=== PATIENT | male | born 1955 | race Caucasian/White ===

== ENCOUNTER 2018-05-26 14:05 | Observation (INO) | payer BC ==
[2018-05-26 14:37] LABS: #Lymphocytes 2.3 thou/uL (1.20-3.40); #Monocytes 0.6 thou/uL (0.11-0.59); #Neutrophils 5.1 thou/uL (1.40-6.50); %Basophils 0.4 % (0.0-1.0); %Eosinophils 0.5 % (0.0-10.0); %Lymphocytes 28.9 % (21.0-51.0); %Monocytes 7.2 % (0.0-10.0); %Neutrophils 63.1 % (42.0-75.0); Hemoglobin 15.1 g/dL (14.0-18.0); Mean Corpuscular HGB CONC 32.9 g/dL (32.0-36.0); Mean Corpuscular Volume 94.1 fL (78.0-98.0); Mean Platelet Volume 9.7 fL (7.4-10.4); Platelet Count 230 thou/uL (130-400); RBC Distribution Width 12.2 % (11.5-14.5); Red Blood Cell (RBC) Count 4.88 mill/uL (4.70-6.10); White Blood Cell (WBC) Count 8.1 thou/uL (4.8-10.8)
[2018-05-26 14:46] LABS: ALT (SGPT) 26 U/L (8-55); AST (SGOT) 30 U/L (5-34); Albumin 4.6 g/dL (3.4-4.8); Alkaline Phosphatase 81 U/L (40-150); Anion Gap 14 mmol/L (10-20); BUN (Urea Nitrogen) 41 mg/dL (8.4-25.7); Bilirubin, Total 0.7 mg/dL (0.2-1.2); CK (CPK) 511 U/L (30-200); Calc. Creatinine Clearance 0 mL/min (70-130); Calcium 9.8 mg/dL (7.8-10.44); Carbon Dioxide 25 mmol/L (23-31); Chloride 97 mmol/L (98-107); Estimated GFR-MDRD 51; Globulin 3.1 g/dL (2.4-3.5); Glucose 103 mg/dL (80-115); Potassium 4.1 mmol/L (3.5-5.1); Protein, Total 7.7 g/dL (5.8-8.1); Sodium 132 mmol/L (136-145)
--- NOTE | 2018-05-26 14:50 | RAD ---
SINGLE VIEW OF THE CHEST: Comparison: 08-21-04 History: Chest pain. FINDINGS: Single view of the chest shows a normal sized cardiomediastinal silhouette. There is no evidence of c onsolidation, mass, or pleural effusion. The bones are unremarkable. IMPRESSION: No evidence of acute cardiopulmonary disease. POS: [facility]
[2018-05-26 14:51] LABS: Troponin I Less than 0.010 ng/mL (< 0.028)
[2018-05-26 14:54] LABS: CKMB 7.3 ng/mL (0-6.6)
[2018-05-26] MEDS ORDERED: Aspirin 325 MG TAB ONE (15:11)
[2018-05-26 18:04] LABS: Troponin I Less than 0.010 ng/mL (< 0.028)
[2018-05-26] MEDS: Sodium Chloride 0.9% 1,000 ML IV SCH (19:14)
[2018-05-26 19:39] VITALS: BMI 31.8
[2018-05-26] MEDS ORDERED: Nitroglycerin 0.4 MG TAB (25 Tab Bottle) PO PRN (19:55)
[2018-05-26] MEDS ORDERED: diphenhydrAMINE 25 MG CAP PO PRN (19:57)
[2018-05-26 21:01] LABS: Anion Gap 11 mmol/L (10-20); BUN (Urea Nitrogen) 28 mg/dL (8.4-25.7); Calc. Creatinine Clearance 118 mL/min (70-130); Calcium 9.2 mg/dL (7.8-10.44); Carbon Dioxide 28 mmol/L (23-31); Chloride 102 mmol/L (98-107); Estimated GFR-MDRD 74; Glucose 106 mg/dL (80-115); Potassium 3.9 mmol/L (3.5-5.1); Sodium 137 mmol/L (136-145)
[2018-05-26 21:06] LABS: Troponin I Less than 0.010 ng/mL (< 0.028)
[2018-05-27] MEDS: Sodium Chloride 0.9% 1,000 ML IV SCH (03:36)
[2018-05-27 05:14] LABS: Anion Gap 12 mmol/L (10-20); BUN (Urea Nitrogen) 20 mg/dL (8.4-25.7); Calc. Creatinine Clearance 156 mL/min (70-130); Calcium 8.8 mg/dL (7.8-10.44); Carbon Dioxide 23 mmol/L (23-31); Cardiac Risk 3.9 (Less than 4.5); Chloride 104 mmol/L (98-107); Cholesterol 121 mg/dl (< 200 Desired); Estimated GFR-MDRD Greater than 90; Glucose 93 mg/dL (80-115); HDL Cholesterol 31 mg/dL (>60 Neg Risk); LDL Cholesterol, Calculated 66 mg/dL; Potassium 4.2 mmol/L (3.5-5.1); Sodium 135 mmol/L (136-145); Triglycerides 120 mg/dL (Less than 150)
--- NOTE | 2018-05-27 05:49 | PDOC.EVN ---
Event Note - Event Note Event Note: h&p dictated [id number]
--- NOTE | 2018-05-27 07:55 | HP ---
PRIMARY CARE PHYSICIAN: [facility]. CHIEF COMPLAINT: Left-sided arm numbness and tingling, specifically over his shoulder, radiating jered n to his elbow without further extension, that is currently resolved. HISTORY OF PRESENT ILLNESS: This is a 62-year-old male, who does not typically follow consistently w ith a PCP, but does have a known history of hypertension who presents with general complaints of not feeling well. Specifically, he has been feeling diaphoretic and extremely sweaty during exertion. T his sensation has also earlier today, but accompanied by left-sided shoulder numbness and tingling th at radiates down to his elbow. The patient denies any sharp chest pains or chest pressure over his l eft thigh. He states that his symptoms resolved after he stopped physical exertion. No accompanying nausea, vomiting, or shortness of breath, no prior similar events. REVIEW OF SYSTEMS: Constitutional: No recent illnesses. No recent significant weight gain or loss over the past 3 months. Denies any fevers or chills in the last week. HEENT: No new headaches, lig htheadedness, vision changes, or dizziness. Cardiovascular: As described above. Respiratory: No s hortness of breath. No recent upper respiratory infection, no cough, no congestion. Gastrointestina l: No nausea, no vomiting, no abdominal pain, no issues with diarrhea or constipation. The patient reports a retained appetite. Genitourinary: Denies any dysuria, change in urinary frequency, qualit y, quantity, or color. Musculoskeletal: Denies any myalgias or arthralgias, other than that describ ed above in the HPI. Remainder of the review of systems otherwise negative. PAST MEDICAL HISTORY: Significant for hypertension. PAST SURGICAL HISTORY: The patient reports multiple orthopedic surgeries in the past including a lef t joint replacement. FAMILY HISTORY: The patient denies any known family history of similar episodes or cardiac issues. SOCIAL HISTORY: The patient denies any tobacco use. Endorses only very occasional alcohol use, 1-2 drinks every 2-3 weeks with friends. He is single, does not have any children. HOME MEDICATIONS: None. Patient also denies taking any herbal supplement, vitamins, or zsxi-hmm-epy nter medications. PHYSICAL EXAMINATION: GENERAL: The patient is awake, alert, conversant, in no acute distress, lying in the hospital bed. HEENT: Normocephalic, atraumatic. Equal ocular motions are intact, moist mucous membranes. CARDIOVASCULAR: S1, S2. No murmurs, rubs, or gallops, soft heart tones. Pulses 2+ bilateral upper extremities, no pitting pedal edema, no carotid bruits. RESPIRATORY: Reasonable air movement. No wheezes, rales, or rhonchi. No conversational dyspnea. C lear to auscultation bilaterally. ABDOMEN: Positive bowel sounds, soft, nontender to palpation. MUSCULOSKELETAL: Moving all 4 extremities independently. LABORATORY DATA AND IMAGING: On 05/26/2018, chest x-ray: Impression: "No evidence of acute cardiop ulmonary disease." WBC 8.1, hemoglobin 15.1, hematocrit 45.9, platelets 230,000. Sodium 132, potass ium 4.1, chloride 97, bicarbonate 25, anion gap of 14, BUN of 41, creatinine 1.4, glucose 103, calciu m 9.8, total bilirubin 0.7, AST 30, ALT 26, alkaline phosphatase 81. Creatinine kinase 511, CK-MB 7. 3, troponin initial less than 0.1, total protein 7.7, albumin 4.6. ASSESSMENT AND PLAN: A 62-year-old male presenting with a chief complaint of easy fatigability and f eeling poorly with diaphoretic episodes and left-sided arm numbness and tingling. 1. The patient's presentation certainly could be consistent with atypical chest pain related to an a cute coronary syndrome-type phenomenon. Unfortunately, the patient does not have a longstanding hist ory of close followup with his primary care physician, so beyond hypertension, it is not clear if he has any other modifiable risk factors or risk factors in general. Check a fasting lipid panel and cl osely monitor the patient's a.m. glucose levels. Maintain the patient on telemetry, repeat EKG in morning, echocardiogram, 2D. To consider stress test if all of the above are otherwise negative. 2. Elevated creatinine, concern for the possibility of prerenal renal injury. The patient does not give a known history of renal disease, but he does have, it appears, longstanding hypertension. As t hese episodes that the patient describes occur mostly with exertion, particularly outside, question t he possibility of dehydration playing a role. Patient currently has normal saline at 125 mL an hour. We will closely monitor intake and output along with vital signs. Repeat BMP and see if renal func tion stabilizes. No further evaluation at this point in time 3. Hypertension appears to be controlled at this point in time. 4. Diet: Cardiac, low sodium. 5. Activity: As tolerated. 6. Deep venous thrombosis prophylaxis with enoxaparin.
[2018-05-27] MEDS ORDERED: Aspirin 325 MG TAB PO SCH (09:00)
[2018-05-27 12:01] VITALS: BP 136/67; TEMP 98
[2018-05-27 12:46] LABS: Anion Gap 13 mmol/L (10-20); BUN (Urea Nitrogen) 15 mg/dL (8.4-25.7); Calc. Creatinine Clearance 155 mL/min (70-130); Calcium 8.9 mg/dL (7.8-10.44); Carbon Dioxide 22 mmol/L (23-31); Chloride 106 mmol/L (98-107); Estimated GFR-MDRD Greater than 90; Glucose 83 mg/dL (80-115); Potassium 4.4 mmol/L (3.5-5.1); Sodium 137 mmol/L (136-145)
--- NOTE | 2018-05-27 14:19 | PDOC.PN ---
- Subjective Encounter Start Date: 05/27/18 Encounter Start Time: 11:00 Subjective: follow up for admission for intermittent left arm pain, reports not -: feeling well for the past 2 weeks - Objective MAR Reviewed: Yes Vital Signs & Weight: Vital Signs (12 hours) Temp Pulse Resp BP BP Pulse Ox 05/27/18 11:45 98 F 68 16 136/67 97 05/27/18 07:24 97.8 F 64 16 116/67 98 05/27/18 03:35 97.9 F 73 12 118/97 H 97 Weight Weight 111.584 kg I&O: 05/26/18 05/27/18 05/28/18 06:59 06:59 06:59 Intake Total 1300 990 Balance 1300 990 Result Diagrams: 05/26/18 14:20 05/27/18 12:09 EKG Reviewed by me: Yes Phys Exam - Physical Examination HEENT: PERRLA, moist MMs Neck: no nodes, no JVD, full ROM Respiratory: clear to auscultation bilateral Cardiovascular: RRR Gastrointestinal: soft, positive bowel sounds Musculoskeletal: no edema Neurological: non-focal, normal sensation, moves all 4 limbs Lymphatic: no nodes Psychiatric: normal affect, A&O x 3 Skin: no rash, normal turgor, cap refill <2 seconds Dx/Plan (1) Hypertension Code(s): I10 - ESSENTIAL (PRIMARY) HYPERTENSION Status: Acute Plan: Will continue home meds and monitor (2) Chest pain in adult Code(s): R07.9 - CHEST PAIN, UNSPECIFIED Status: Acute Plan: patient has an echo and stress test ordered and will follow - Plan cont current plan of care, DVT proph w/SCDs * .
--- NOTE | 2018-05-27 14:27 | PDOC.EVN ---
Event Note - Event Note Event Note: disccussed POC with Enzo Uriarte, agree with same
--- NOTE | 2018-05-27 17:03 | PDOC.EVN ---
Event Note - Event Note Event Note: Patient seen, agree with DC plan
--- NOTE | 2018-05-27 17:17 | NM ---
RADIONUCLIDE STRESS AND REST MYOCARDIAL PERFUSION SCAN WITH CT ATTENUATION CORRECTION AND SPECT IMAGI NG WITH LEFT VENTRICULAR WALL MOTION EVALUATION AND EJECTION FRACTION: HISTORY: Chest pain. FINDINGS: Yazan protocol. Total test time 5:16. There is homogeneous uptake of radiotracer throughout the left ventricular myocardium without focal p erfusion defect or reversibility. QGS analysis of gated SPECT images shows no focal wall motion abnormalities. TID equals 0.96. LHR equ als 39%. Left ventricular ejection fraction is calculated at 65%. IMPRESSION: 1. Normal myocardial perfusion scan. 2. Normal LVEF. POS: [facility]
--- NOTE | 2018-05-28 00:58 | DIS ---
DATE OF ADMISSION: 05/26/2018 DATE OF DISCHARGE: 05/27/2018 DISCHARGE DIAGNOSIS: Hypertension. CONSULTATIONS: None. CODE STATUS: FULL CODE. PROCEDURES: He had a stress test with 65% EF and it was a normal stress test. 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 See hospitalist note for today for physical examination. HOSPITAL COURSE: This is a 62-year-old man who presented to the ED on 2017 with generalized feeling of not feeling well for the past couple of weeks who reported feeling diaphoretic during exertion and had left arm pain and numbness intermittently. He denied sharp chest pain, nausea, or vomiting. Here , his pain has resolved and the stress test was normal with a normal EF and we feel comfortable discharging him with a pending echo report. ALLERGIES: He has no known allergies. HOME MEDICATIONS: He will continue his lisinopril/hydrochlorothiazide 10/12.5 mg daily. DIET: Heart healthy. DISCHARGE CONDITION: Stable. DISPOSITION: Home and he is to have follow up with the [facility] in [place] within 1 week. JACOBY
== END 2018-05-27 17:07 | disposition home or self-care (01) ==
LOC: ERS 14:05 → 2SW 15:40
PROVIDERS: ADMIT Internal Medicine; ATTEND Internal Medicine
DX: M79.602 Pain in left arm (principal); R20.2 Paresthesia of skin; I10 Essential (primary) hypertension; R79.89 Other specified abnormal findings of blood chemistry; Z79.899 Other long term (current) drug therapy
CPT/HCPCS: 36415; 71045; 78452; 80048; 80053; 80061; 82553; 84484; 85025; 93005; 93017; 93306; 94760; 96360; 96361; A9500; G0378

== ENCOUNTER 2021-12-09 05:32 | Observation (INO) | payer BC, MEDICARE ==
[2021-12-04 12:52] VITALS: BMI 30.8
[2021-12-09] MEDS ORDERED: Vancomycin HCl 1.5 GM in Sodium Chloride 0.9% 250 ML 300 ML IVPB SCH ×2 (06:15→20:00)
[2021-12-09] MEDS ORDERED: Bupivacaine PF 0.5% 30 ML VIAL ONE (06:28)
[2021-12-09] MEDS ORDERED: Tranexamic Acid 1,000 MG/10 ML VIAL ONE ×2 (06:29→09:15)
[2021-12-09] MEDS ORDERED: Sodium Chloride 0.9% 100 ML ONE (06:30)
[2021-12-09] MEDS ORDERED: Fentanyl 100 MCG/2 ML VIAL ONE ×4 (06:38→09:58)
[2021-12-09] MEDS ORDERED: Lidocaine 1% (PF) 30 ML VIAL ONE (06:49)
[2021-12-09] MEDS ORDERED: Midazolam HCl 2 mg/2 ml Vial ONE (06:49)
[2021-12-09] MEDS ORDERED: ceFAZolin (BATCH) 2 GM/100 ML BAG ONE (06:57)
[2021-12-09] MEDS ORDERED: Ketorolac Tromethamine 30 MG/ML VIAL ONE (07:20)
[2021-12-09] MEDS ORDERED: Ropivacaine 0.5% HCl/PF (150 MG/30 ML VIAL) ONE (07:20)
[2021-12-09] MEDS ORDERED: PROPOFOL 200 MG/20 ML VIAL ONE (07:20)
[2021-12-09] MEDS ORDERED: Glycopyrrolate 0.2 MG/ML 5 ML SYRINGE ONE (07:20)
[2021-12-09] MEDS ORDERED: Lidocaine 1% PF 5 ML VIAL ONE (07:20)
[2021-12-09] MEDS ORDERED: Ondansetron PF 4 MG/2 ML Vial ONE (07:20)
[2021-12-09] MEDS ORDERED: Dexamethasone 20 MG/5 ML VIAL ONE (07:20)
[2021-12-09] MEDS ORDERED: Promethazine HCl 25 MG/ML VIAL IM PRN ×2 (07:22→08:00)
[2021-12-09] MEDS ORDERED: HYDROcodone/Acetaminophen 10/325 mg Tablet PO PRN ×4 (07:22→08:00)
[2021-12-09] MEDS ORDERED: Fentanyl 100 MCG/2 ML VIAL SLOW IVP PRN ×2 (07:22→07:51)
[2021-12-09] MEDS ORDERED: Acetaminophen 325 MG TAB PO PRN (07:22)
[2021-12-09] MEDS ORDERED: diphenhydrAMINE 25 MG CAP PO PRN (07:22)
[2021-12-09] MEDS ORDERED: traMADol HCl 50 MG TAB PO PRN ×3 (07:22→08:00)
[2021-12-09] MEDS ORDERED: Zolpidem Tartrate 5 MG TAB PO PRN (07:22)
[2021-12-09] MEDS ORDERED: Ondansetron PF 4 MG/2 ML Vial IVP PRN (07:22)
[2021-12-09] MEDS ORDERED: Tranexamic Acid 1,000 MG in Sodium Chloride 0.9% 100 ML IVPB SCH (07:30)
[2021-12-09] MEDS ORDERED: Fentanyl 250 MCG/5 ML VIAL ONE (07:51)
[2021-12-09] MEDS ORDERED: Ropivacaine 0.2% 550 ML 550 ML NERVE BLCK SCH (08:00)
[2021-12-09] MEDS ORDERED: Labetalol HCl 100 MG/20 ML VIAL ONE (10:07)
[2021-12-09] MEDS ORDERED: Non-Formulary Medication 1 EACH PO PRN (10:11)
[2021-12-09] MEDS ORDERED: Ondansetron HCl/PF 4 MG/2 ML Vial IVP PRN (10:15)
[2021-12-09] MEDS ORDERED: Promethazine HCl 25 MG/ML VIAL IM/IV PRN (10:15)
[2021-12-09] MEDS ORDERED: Labetalol HCl 100 MG/20 ML VIAL SLOW IVP PRN (10:17)
[2021-12-09] MEDS: Lisinopril/Hydrochlorothiazide 20 mg/12.5 mg Tablet PO SCH (11:44)
[2021-12-09] MEDS: Aspirin 81 mg Enteric Coated Tablet PO SCH ×2 (11:44→21:54)
[2021-12-09] MEDS: Ketorolac Tromethamine 30 MG/ML VIAL IVP SCH ×2 (11:45→18:56)
[2021-12-09] MEDS ORDERED: Ketorolac Tromethamine 30 MG/ML VIAL IVP SCH (14:00)
[2021-12-09] MEDS: ceFAZolin (BATCH) 2 GM in Premix Bag 1 BAG IVPB SCH (15:26)
[2021-12-09] MEDS: Sodium Chloride 0.9% 1,000 ML IV SCH ×2 (15:26→17:07)
[2021-12-09] MEDS: Ondansetron PF 4 MG/2 ML Vial IVP PRN (17:07)
[2021-12-10] MEDS: Ketorolac Tromethamine 30 MG/ML VIAL IVP SCH ×4 (00:59→17:50)
[2021-12-10] MEDS: ceFAZolin (BATCH) 2 GM in Premix Bag 1 BAG IVPB SCH (01:00)
[2021-12-10] MEDS: Zolpidem Tartrate 5 MG TAB PO PRN ×2 (01:06→20:56)
[2021-12-10] MEDS: Sodium Chloride 0.9% 1,000 ML IV SCH ×2 (04:53→14:28)
[2021-12-10 06:36] LABS: Hemoglobin 11.8 g/dL (14.0-18.0); Mean Corpuscular HGB CONC 33.8 g/dL (32.0-36.0); Mean Corpuscular Hemoglobin 32.8 pg (27.0-31.0); Mean Platelet Volume 8.9 fL (7.4-10.4); Platelet Count 193 thou/uL (130-400); RBC Distribution Width 12.7 % (11.5-14.5); White Blood Cell (WBC) Count 12.9 thou/uL (4.8-10.8)
[2021-12-10] MEDS: Senokot S 8.6-50 MG TAB PO SCH ×2 (08:30→21:36)
[2021-12-10] MEDS: Aspirin 81 mg Enteric Coated Tablet PO SCH ×2 (08:31→20:56)
[2021-12-10] MEDS: Ferrous Gluconate 324 MG TAB PO SCH ×2 (08:31→18:00)
[2021-12-10] MEDS: Multivitamin W/ Minerals 1 TAB PO SCH (08:31)
[2021-12-10] MEDS: Lisinopril/Hydrochlorothiazide 20 mg/12.5 mg Tablet PO SCH (08:31)
[2021-12-10] MEDS: Ondansetron PF 4 MG/2 ML Vial IVP PRN (17:56)
[2021-12-11] MEDS: Ketorolac Tromethamine 30 MG/ML VIAL IVP SCH ×2 (00:10→06:25)
[2021-12-11] MEDS: Sodium Chloride 0.9% 1,000 ML IV SCH ×2 (00:18→12:31)
[2021-12-11 07:07] LABS: Hemoglobin 11.7 g/dL (14.0-18.0); Mean Corpuscular Hemoglobin 31.8 pg (27.0-31.0); Mean Corpuscular Volume 96.5 fL (78.0-98.0); Platelet Count 182 thou/uL (130-400); RBC Distribution Width 12.8 % (11.5-14.5); Red Blood Cell (RBC) Count 3.67 mill/uL (4.70-6.10); White Blood Cell (WBC) Count 8.2 thou/uL (4.8-10.8)
[2021-12-11] MEDS: Aspirin 81 mg Enteric Coated Tablet PO SCH (08:53)
[2021-12-11] MEDS: Multivitamin W/ Minerals 1 TAB PO SCH (08:54)
[2021-12-11] MEDS: Lisinopril/Hydrochlorothiazide 20 mg/12.5 mg Tablet PO SCH (08:54)
[2021-12-11] MEDS: Senokot S 8.6-50 MG TAB PO SCH (08:54)
[2021-12-11] MEDS: Ferrous Gluconate 324 MG TAB PO SCH (08:54)
[2021-12-11 08:58] VITALS: BP 128/59; TEMP 97.7
== END 2021-12-11 11:40 | disposition home or self-care (01) ==
LOC: SDC 05:32 → SJJU 07:33
PROVIDERS: ADMIT Orthopaedic Surgery; ATTEND Orthopaedic Surgery
PROC: 0SRC0J9 Replacement of Right Knee Joint with Synthetic Substitute, Cemented, Open Approach (ICD-10-PCS; principal; 2021-12-09)
PROC: 8E0YXBZ Computer Assisted Procedure of Lower Extremity (ICD-10-PCS; 2021-12-09)
PROC: 3E0T3BZ Introduction of Anesthetic Agent into Peripheral Nerves and Plexi, Percutaneous Approach (ICD-10-PCS; 2021-12-09)
DX: M17.11 Unilateral primary osteoarthritis, right knee (principal); M21.161 Varus deformity, not elsewhere classified, right knee; I10 Essential (primary) hypertension; Z79.899 Other long term (current) drug therapy; Z96.652 Presence of left artificial knee joint
CPT/HCPCS: 36415; 85027; 96365; 96375; 96376; A4306; C1713; C1776; G0378; J0690; J1100; J1885; J2001; J2250; J2405; J2704; J2795; J3010; J3370; J3490; J7050; S0020